=== PATIENT | female | born 1955 | race African-American/Black ===

== ENCOUNTER 2016-08-15 08:54 | Day surgery (SDC) | payer OTHER ==
[2016-08-15 09:19] VITALS: BMI 43.9
[2016-08-15] MEDS ORDERED: LIDOCAINE HCL 2% (20ML MULTI-DOSE VIAL) NR ONE (10:46)
[2016-08-15] MEDS ORDERED: PROPOFOL 20 ML ONE ×6 (10:47)
[2016-08-15] MEDS ORDERED: SUCCINYLCHOLINE CHLORIDE 200 MG/10 ML VIAL ONE (10:48)
[2016-08-15 11:21] VITALS: TEMP 98
[2016-08-15 12:08] VITALS: BP 150/74; PULSE 71
--- NOTE | 2016-08-16 16:10 | PATH ---
Surgical Pathology Report Patient Name: OSVALDO JACOBO [facility], [place]. Rec. #: [id number] /Age/Gender: 1955 (Age: 60) / F Account: [id number] Location: U-ENDOSCOPY Taken: 08/15/2016 Received: 08/15/2016 Reported: 08/16/2016 Physicians: Miky Finley M.D. Specimen(s) Received A: BX DUODENUM B: BX BODY OF STOMACH Clinical History Epigastric pain Gastritis Final Diagnosis A. DUODENUM, BIOPSY: DUODENAL MUCOSA WITHOUT SIGNIFICANT PATHOLOGIC CHANGES. NO HISTOLOGIC EVIDENCE OF GLUTEN SENSITIVE ENTEROPATHY (CELIAC DISEASE). B. STOMACH, BODY, BIOPSY: GASTRIC OXYNTIC MUCOSA WITH MODERATE CHRONIC GASTRITIS. IMMUNOSTAIN FOR H. PYLORI IS NEGATIVE FOR ORGANISMS. Electronically Signed Yg Dong M.D. Gross Description A. Received in formalin, labeled "duodenum" are 2 stephenson, irregular portions of soft tissue averaging 0.2 cm in greatest dimension. The specimens are submitted in toto in one cassette. B. Received in formalin, labeled "biopsy body of stomach" are 2 stephenson, irregular portions of soft tissue measuring 0.3 and 0.7 cm in greatest dimension. The specimens are submitted in toto in one cassette. 08/15/201608/15/2016
== END 2016-08-15 12:54 | disposition home or self-care (01) ==
LOC: JASU-ENDO 08:54
PROVIDERS: ATTEND Internal Medicine Gastroenterology
PROC: 0DB68ZX Excision of Stomach, Via Natural or Artificial Opening Endoscopic, Diagnostic (ICD-10-PCS; 2016-08-15)
PROC: 0DB98ZX Excision of Duodenum, Via Natural or Artificial Opening Endoscopic, Diagnostic (ICD-10-PCS; principal; 2016-08-15 10:30)
DX: K31.89 Other diseases of stomach and duodenum (principal); R10.13 Epigastric pain
CPT/HCPCS: 88305-TC; 88342-TC

== ENCOUNTER 2016-08-22 10:11 | Day surgery (SDC) | payer OTHER ==
[2016-08-21 14:30] VITALS: BMI 43.9
[2016-08-22 10:32] VITALS: TEMP 98
[2016-08-22] MEDS ORDERED: LIDOCAINE HCL/PF 2% SDV 5ML VIAL ONE (12:10)
[2016-08-22] MEDS ORDERED: PROPOFOL 20 ML ONE ×2 (12:11)
[2016-08-22 13:26] VITALS: BP 145/63; PULSE 63
--- NOTE | 2016-08-23 13:27 | PATH ---
Surgical Pathology Report Patient Name: OSVALDO JACOBO [facility] Rec. #: [id number] /Age/Gender: 1955 (Age: 60) / F Account: [id number] Location: U-ENDOSCOPY Taken: 08/22/2016 Received: 08/22/2016 Reported: 08/23/2016 Physicians: Miky Finley M.D. Specimen(s) Received BX POLYP HEPATIC FLEXURE Clinical History Family history of colon cancer Colon polyp, redundant sigmoid Final Diagnosis COLON, HEPATIC FLEXURE, POLYP, BIOPSY: TUBULAR ADENOMA. Electronically Signed Yg Dong M.D. Gross Description Received in formalin, labeled "biopsy polyp hepatic flexure" is a stephenson, irregular portion of soft tissue measuring 0.5 cm in greatest dimension. The specimen is submitted in toto in one cassette. /08/22/2016 saudi/08/22/2016
== END 2016-08-22 13:30 | disposition home or self-care (01) ==
LOC: JASU-ENDO 10:11
PROVIDERS: ATTEND Internal Medicine Gastroenterology
PROC: 0DBK8ZX Excision of Ascending Colon, Via Natural or Artificial Opening Endoscopic, Diagnostic (ICD-10-PCS; principal; 2016-08-22 12:00)
DX: Z12.11 Encounter for screening for malignant neoplasm of colon (principal); D12.2 Benign neoplasm of ascending colon; Z80.0 Family history of malignant neoplasm of digestive organs
CPT/HCPCS: 88305-TC

== ENCOUNTER 2021-01-24 11:17 | Emergency (ER) | payer OTHER ==
[2021-01-24 12:29] VITALS: BP 187/80; PULSE 89; TEMP 98.2; BMI 41.8
== END 2021-01-24 13:22 | disposition home or self-care (01) ==
LOC: JER 11:17
DX: R05.1 Acute cough (principal); I10 Essential (primary) hypertension
CPT/HCPCS: 71046-TC-FY; 99284-25; C9803; U0003; U0005

== ENCOUNTER 2022-06-01 14:28 | Inpatient (IN) | payer OTHER ==
[2022-06-01] MEDS ORDERED: SODIUM CHLORIDE 0.9% 500 ML INFUS.BAG IV ONE (15:33)
[2022-06-01 17:13] LABS: BASO % 0.8 % (0-2.0); EOS % 2.3 % (0-4.5); HEMOGLOBIN 12.1 GM/dL (10.7-15.3); LYMPH % 32.8 % (8-40); MCH 30.3 pg (25.7-33.7); MCHC 34.7 g/dl (32.0-36.0); MEAN CELL VOLUME 87.2 fl (80-96); MEAN PLT VOLUME 9.7 fl (7.5-11.1); NEUT % 54.1 % (42.8-82.8); PLATELET COUNT 223 10^3/uL (134-434); RBC 4.01 M/mm3 (3.60-5.2); RDW 13.3 % (11.6-15.6); WHITE BLOOD COUNT 8.6 K/mm3 (4.0-10.0)
[2022-06-01 17:14] LABS: PH,URINE 6.5 (5.0-8.0); URINE APPEARANCE CLEAR; URINE BILIRUBIN NEGATIVE (NEGATIVE); URINE COLOR YELLOW; URINE GLUCOSE (UA) NEGATIVE (NEGATIVE); URINE KETONE NEGATIVE (NEGATIVE); URINE LEUK ESTERASE NEGATIVE (NEGATIVE); URINE NITRITE NEGATIVE (NEGATIVE); URINE PROTEIN NEGATIVE (NEGATIVE); URINE UROBILINOGEN 0.2 mg/dL (0.2-1.0)
[2022-06-01 17:24] LABS: INR 1.07 (0.83-1.09); PROTHROMBIN TIME (PATIENT) 12.4 SEC (9.7-13.0)
[2022-06-01 17:28] LABS: ACTIVATED PTT 31.1 SECONDS (25.2-36.5)
[2022-06-01 17:37] LABS: CALCIUM 11.2 mg/dL (8.5-10.1)
[2022-06-01 17:38] LABS: ALBUMIN 3.7 g/dl (3.4-5.0); BLOOD UREA NITROGEN 17.4 mg/dL (7-18); MAGNESIUM 1.9 mg/dL (1.8-2.4)
[2022-06-01 17:41] LABS: CREATININE 0.7 mg/dL (0.55-1.3); PHOSPHOROUS 2.8 mg/dL (2.5-4.9)
[2022-06-01 17:42] LABS: BILIRUBIN,TOTAL 0.4 mg/dL (0.2-1); TOT PROT 7.9 g/dl (6.4-8.2)
[2022-06-01] MEDS ORDERED: ONDANSETRON 4 MG/2 ML VIAL IVPUSH PRN (20:22)
[2022-06-01] MEDS ORDERED: ONDANSETRON 4 MG/2 ML VIAL ONE (20:53)
[2022-06-01] MEDS: SODIUM CHLORIDE 1,000 ML IV SCH (22:35)
[2022-06-01] MEDS: ENOXAPARIN NA (PORCINE) 40 MG/0.4 ML DISP.SYRIN SQ SCH (22:35)
[2022-06-01 23:24] VITALS: BMI 45.9
[2022-06-02] MEDS: hydrALAZINE HCL 25 MG TABLET (FP) PO SCH ×4 (01:00→21:37)
[2022-06-02 08:24] LABS: BASO % 0.5 % (0-2.0); EOS % 1.7 % (0-4.5); HEMATOCRIT 33.4 % (32.4-45.2); HEMOGLOBIN 11.7 GM/dL (10.7-15.3); LYMPH % 31.7 % (8-40); MCH 30.5 pg (25.7-33.7); MCHC 35.2 g/dl (32.0-36.0); MEAN CELL VOLUME 86.7 fl (80-96); MEAN PLT VOLUME 9.5 fl (7.5-11.1); MONO % 10.4 % (3.8-10.2); NEUT % 55.7 % (42.8-82.8); PLATELET COUNT 181 10^3/uL (134-434); RBC 3.85 M/mm3 (3.60-5.2); RDW 13.4 % (11.6-15.6); WHITE BLOOD COUNT 5.6 K/mm3 (4.0-10.0)
[2022-06-02 08:38] LABS: CALCIUM 10.6 mg/dL (8.5-10.1)
[2022-06-02 08:39] LABS: ALBUMIN 3.4 g/dl (3.4-5.0); BLOOD UREA NITROGEN 12.2 mg/dL (7-18); MAGNESIUM 1.9 mg/dL (1.8-2.4)
[2022-06-02 08:42] LABS: CREATININE 0.6 mg/dL (0.55-1.3); PHOSPHOROUS 2.5 mg/dL (2.5-4.9)
[2022-06-02 08:44] LABS: BILIRUBIN,TOTAL 0.5 mg/dL (0.2-1)
[2022-06-02] MEDS ORDERED: FUROSEMIDE 40 MG/4 ML INJECTABLE VIAL IVPUSH ONE (09:00)
[2022-06-02] MEDS: LOSARTAN POTASSIUM 50 MG TABLET PO SCH (09:43)
[2022-06-02] MEDS: PANTOPRAZOLE 40 MG TABLET PO SCH (09:43)
[2022-06-02] MEDS: amLODIPine BESYLATE 10 MG TABLET (FP) PO SCH (09:43)
[2022-06-02] MEDS: SPIRONOLACTONE 25 MG TABLET PO SCH (09:43)
[2022-06-02] MEDS: ENOXAPARIN NA (PORCINE) 40 MG/0.4 ML DISP.SYRIN SQ SCH ×2 (09:43→21:37)
[2022-06-02] MEDS: SODIUM CHLORIDE 1,000 ML IV SCH (09:53)
[2022-06-02] MEDS ORDERED: SODIUM CHLORIDE 1,000 ML IV SCH (12:30)
[2022-06-02] MEDS: ATORVASTATIN CA 80 MG TABLET (FP) PO SCH (21:37)
[2022-06-03] MEDS: hydrALAZINE HCL 25 MG TABLET (FP) PO SCH ×3 (05:44→21:19)
[2022-06-03 08:06] LABS: PARATHYROID HORM INTACT 55 pg/mL (15-65)
[2022-06-03 08:15] LABS: BASO % 0.5 % (0-2.0); EOS % 1.3 % (0-4.5); HEMATOCRIT 35.2 % (32.4-45.2); HEMOGLOBIN 12.3 GM/dL (10.7-15.3); MCH 30.4 pg (25.7-33.7); MCHC 34.9 g/dl (32.0-36.0); MEAN CELL VOLUME 87.1 fl (80-96); MEAN PLT VOLUME 9.6 fl (7.5-11.1); NEUT % 51.2 % (42.8-82.8); PLATELET COUNT 179 10^3/uL (134-434); RBC 4.04 M/mm3 (3.60-5.2); RDW 13.4 % (11.6-15.6); WHITE BLOOD COUNT 5.6 K/mm3 (4.0-10.0)
[2022-06-03 08:43] LABS: CALCIUM 11.4 mg/dL (8.5-10.1)
[2022-06-03 08:44] LABS: ALBUMIN 3.3 g/dl (3.4-5.0); BLOOD UREA NITROGEN 13.5 mg/dL (7-18); MAGNESIUM 1.8 mg/dL (1.8-2.4)
[2022-06-03 08:46] LABS: PHOSPHOROUS 2.7 mg/dL (2.5-4.9)
[2022-06-03 08:47] LABS: CREATININE 0.6 mg/dL (0.55-1.3)
[2022-06-03 08:48] LABS: BILIRUBIN,TOTAL 0.6 mg/dL (0.2-1)
[2022-06-03] MEDS: ENOXAPARIN NA (PORCINE) 40 MG/0.4 ML DISP.SYRIN SQ SCH ×2 (09:53→21:19)
[2022-06-03] MEDS: LOSARTAN POTASSIUM 50 MG TABLET PO SCH (09:54)
[2022-06-03] MEDS: SPIRONOLACTONE 25 MG TABLET PO SCH (09:54)
[2022-06-03] MEDS: PANTOPRAZOLE 40 MG TABLET PO SCH (09:54)
[2022-06-03] MEDS: amLODIPine BESYLATE 10 MG TABLET (FP) PO SCH (09:54)
[2022-06-03] MEDS: FUROSEMIDE 40 MG/4 ML INJECTABLE VIAL IVPUSH SCH (09:55)
[2022-06-03] MEDS: SODIUM CHLORIDE 1,000 ML IV SCH (14:30)
[2022-06-03 16:09] LABS: FREE KAPPA,SERUM 28.8 mg/L (3.3-19.4)
[2022-06-03] MEDS: POLYETHYLENE GLYCOL (HEALTHYLAX) 3350 17 GM PACKET PO PRN (21:18)
[2022-06-03] MEDS: ATORVASTATIN CA 80 MG TABLET (FP) PO SCH (21:19)
[2022-06-04] MEDS: hydrALAZINE HCL 25 MG TABLET (FP) PO SCH ×3 (05:35→21:18)
[2022-06-04] MEDS: SODIUM CHLORIDE 1,000 ML IV SCH ×2 (05:36→16:21)
[2022-06-04 08:19] LABS: BASO % 0.4 % (0-2.0); EOS % 1.2 % (0-4.5); HEMATOCRIT 36.7 % (32.4-45.2); HEMOGLOBIN 12.8 GM/dL (10.7-15.3); LYMPH % 31.5 % (8-40); MCH 30.8 pg (25.7-33.7); MEAN PLT VOLUME 8.8 fl (7.5-11.1); MONO % 10.4 % (3.8-10.2); NEUT % 56.5 % (42.8-82.8); PLATELET COUNT 234 10^3/uL (134-434); RBC 4.17 M/mm3 (3.60-5.2); RDW 13.8 % (11.6-15.6); WHITE BLOOD COUNT 6.7 K/mm3 (4.0-10.0)
[2022-06-04 08:37] LABS: ALBUMIN 3.8 g/dl (3.4-5.0); CALCIUM 11.1 mg/dL (8.5-10.1)
[2022-06-04 08:38] LABS: BLOOD UREA NITROGEN 18.2 mg/dL (7-18)
[2022-06-04 08:40] LABS: CREATININE 0.7 mg/dL (0.55-1.3)
[2022-06-04 08:42] LABS: BILIRUBIN,TOTAL 0.5 mg/dL (0.2-1); TOT PROT 7.8 g/dl (6.4-8.2)
[2022-06-04] MEDS: ENOXAPARIN NA (PORCINE) 40 MG/0.4 ML DISP.SYRIN SQ SCH ×2 (09:59→21:17)
[2022-06-04] MEDS: POLYETHYLENE GLYCOL (HEALTHYLAX) 3350 17 GM PACKET PO PRN (09:59)
[2022-06-04] MEDS: SPIRONOLACTONE 25 MG TABLET PO SCH (10:00)
[2022-06-04] MEDS: FUROSEMIDE 40 MG/4 ML INJECTABLE VIAL IVPUSH SCH (10:00)
[2022-06-04] MEDS: PANTOPRAZOLE 40 MG TABLET PO SCH (10:00)
[2022-06-04] MEDS: amLODIPine BESYLATE 10 MG TABLET (FP) PO SCH (10:00)
[2022-06-04] MEDS: LOSARTAN POTASSIUM 50 MG TABLET PO SCH (10:00)
[2022-06-04] MEDS ORDERED: ACETAMINOPHEN 325 MG TABLET (FP) PO PRN (15:59)
[2022-06-04 16:08] LABS: BETA-2-MICROGLOBULIN 1.9 mg/L (0.6-2.4)
[2022-06-04] MEDS: ATORVASTATIN CA 80 MG TABLET (FP) PO SCH (21:18)
[2022-06-05] MEDS: hydrALAZINE HCL 25 MG TABLET (FP) PO SCH (05:32)
[2022-06-05 06:21] VITALS: PULSE 55
[2022-06-05] MEDS ORDERED: POLYETHYLENE GLYCOL (HEALTHYLAX) 3350 17 GM PACKET PO SCH (10:00)
[2022-06-05 10:12] VITALS: BP 170/78; RESP 18; TEMP 97.5
[2022-06-05] MEDS: SPIRONOLACTONE 25 MG TABLET PO SCH (10:14)
[2022-06-05] MEDS: LOSARTAN POTASSIUM 50 MG TABLET PO SCH (10:15)
[2022-06-05] MEDS: ENOXAPARIN NA (PORCINE) 40 MG/0.4 ML DISP.SYRIN SQ SCH (10:15)
[2022-06-05] MEDS: PANTOPRAZOLE 40 MG TABLET PO SCH (10:16)
[2022-06-05] MEDS: amLODIPine BESYLATE 10 MG TABLET (FP) PO SCH (10:16)
[2022-06-05] MEDS: FUROSEMIDE 40 MG/4 ML INJECTABLE VIAL IVPUSH SCH (10:16)
[2022-06-05 10:32] LABS: BASO % 0.7 % (0-2.0); EOS % 1.1 % (0-4.5); HEMATOCRIT 36.2 % (32.4-45.2); HEMOGLOBIN 12.7 GM/dL (10.7-15.3); LYMPH % 32.7 % (8-40); MCH 30.6 pg (25.7-33.7); MEAN CELL VOLUME 87.4 fl (80-96); MEAN PLT VOLUME 8.9 fl (7.5-11.1); MONO % 10.8 % (3.8-10.2); NEUT % 54.7 % (42.8-82.8); PLATELET COUNT 225 10^3/uL (134-434); RBC 4.14 M/mm3 (3.60-5.2); RDW 13.7 % (11.6-15.6); WHITE BLOOD COUNT 6.4 K/mm3 (4.0-10.0)
[2022-06-05 11:29] LABS: ALBUMIN 3.7 g/dl (3.4-5.0); BLOOD UREA NITROGEN 15.4 mg/dL (7-18); MAGNESIUM 1.9 mg/dL (1.8-2.4)
[2022-06-05 11:30] LABS: PHOSPHOROUS 2.5 mg/dL (2.5-4.9)
[2022-06-05 11:31] LABS: BILIRUBIN,TOTAL 0.5 mg/dL (0.2-1); TOT PROT 7.8 g/dl (6.4-8.2)
[2022-06-05 11:32] LABS: CREATININE 0.8 mg/dL (0.55-1.3)
== END 2022-06-05 13:44 | disposition home or self-care (01) | DRG 641 ==
LOC: JER 14:28 → JERBED 15:34 → J7W 22:28
PROVIDERS: ADMIT Internal Medicine
DX: E83.52 Hypercalcemia (principal); Z68.41 Body mass index [BMI] 40.0-44.9, adult; I13.0 Hypertensive heart and chronic kidney disease with heart failure and stage 1 through stage 4 chronic kidney disease, or unspecified chronic kidney disease; I50.32 Chronic diastolic (congestive) heart failure; E78.5 Hyperlipidemia, unspecified; K21.9 Gastro-esophageal reflux disease without esophagitis; E66.01 Morbid (severe) obesity due to excess calories; Z86.16 Personal history of COVID-19; R91.1 Solitary pulmonary nodule; N18.9 Chronic kidney disease, unspecified; R73.03 Prediabetes; I16.0 Hypertensive urgency; K59.00 Constipation, unspecified
CPT/HCPCS: 0241U-QW; 36415; 71045-TC-FY; 74177-TC; 80053; 81003; 82232; 82306; 82330; 82397; 82652; 83615; 83690; 83735; 83883; 83970; 84100; 84155; 84156; 84157; 84165; 84443; 84590; 85025; 85610; 85730; 87086; 87186; 93005; 93010; 93970-TC; 99285-25; Q9967

== ENCOUNTER 2023-02-21 07:54 | Emergency (ER) | payer OTHER ==
[2023-02-21 08:11] VITALS: BP 161/78; PULSE 75; RESP 17; TEMP 99.9; BMI 42.0
[2023-02-21] MEDS ORDERED: KETOROLAC TROMETHAMINE 30 MG/1 ML VIAL IM ONE (09:25)
[2023-02-21] MEDS ORDERED: KETOROLAC TROMETHAMINE 30 MG/1 ML VIAL ONE (09:32)
== END 2023-02-21 10:28 | disposition home or self-care (01) ==
LOC: JERFT 07:54 → JER 07:54 → JERFT 10:28
PROC: 3E0233Z Introduction of Anti-inflammatory into Muscle, Percutaneous Approach (ICD-10-PCS; principal; 2023-02-21)
DX: M79.10 Myalgia, unspecified site (principal); R50.9 Fever, unspecified; R05.9 Cough, unspecified; J10.1 Influenza due to other identified influenza virus with other respiratory manifestations; Z20.822 Contact with and (suspected) exposure to COVID-19
CPT/HCPCS: 0241U-QW; 71046-TC-FY; 99284-25

== ENCOUNTER 2023-07-18 02:58 | Emergency (ER) | payer OTHER ==
[2023-07-18 03:10] VITALS: BP 176/88; PULSE 64; RESP 20; TEMP 98; BMI 43.0
[2023-07-18] MEDS ORDERED: ACETAMINOPHEN 325 MG TABLET (FP) ONE (03:31)
[2023-07-18] MEDS: ACETAMINOPHEN 325 MG TABLET (FP) PO ONE (03:34)
== END 2023-07-18 05:40 | disposition home or self-care (01) ==
LOC: JER 02:58
DX: E89.810 Postprocedural hemorrhage of an endocrine system organ or structure following an endocrine system procedure (principal); Z48.01 Encounter for change or removal of surgical wound dressing
CPT/HCPCS: 99283-25